=== PATIENT | female | born 1960 | race Caucasian/White ===

== ENCOUNTER 2019-05-22 20:45 | Emergency (ER) | payer MEDICAID, OTHER ==
[~2019-05-22] VITALS: Ht 152.4 cm; Wt 77.1 kg
[~2019-05-22 20:45] MED LIST: FLUC150T3 PO; KEN.1C TP
--- NOTE | 2019-05-22 20:52 | NUR ---
PT AMBULATED TO ER BED 8
[2019-05-22 20:58] VITALS: BP 117/96
--- NOTE | 2019-05-22 21:00 | NUR ---
PT PRESENTS WITH LLQ ABD AND FLANK PAIN 7/10 FOR ONE DAY. FEVER 102F, NAUSEA. DENIES VOMITING. PASSING GAS, STOOLS REGULAR DENIES DIARRHEA OR CONSTIPATION. DENIES COUGH. PULSE ELEVATED 155. PLACED ON MONITOR. COOLING MEASURES TAKEN. URINE OBTAINED AND SENT TO LAB. DIAPHORETIC. PMH: STROKE 2010 AND 2016, BREAST CANCER AND LEFT MASECTOMY 2004, HYPERTENSION
--- NOTE | 2019-05-22 21:07 | NUR ---
DR. BAIG BEDSIDE EVALUATING PT
[2019-05-22] MEDS ORDERED: NACL 0.9% 1,000 ML IV ONE ×2 (21:15→21:50)
[2019-05-22] MEDS ORDERED: ONDANSETRON 4 MG/2 ML VIAL IVP ONE (21:15)
[2019-05-22] MEDS ORDERED: MORPHINE SULFATE 4 MG/ML SYR IVP ONE (21:15)
[2019-05-22] MEDS ORDERED: ACETAMINOPHEN EXTRA STRENGTH 500 MG TAB PO ONE (21:25)
--- NOTE | 2019-05-22 21:25 | NUR ---
IV ESTABLISHED, LAB IN ROOM; BLOOD DRAWN; BLOOD CULTURES DRAWN; SENT TO LAB. URINE SENT TO LAB. GAVE IVP ZOFRAN AND MORPHINE, GAVE 1G PO TYLENOL, STARTED 1L NS IVF BOLUS. INFORMED PT OF NEED FOR CT. WILL CONTINUE TO MONITOR.
[2019-05-22 21:36] LABS: BASOPHILS # (AUTO) 0.1 K/uL (0.00-0.22); BASOPHILS % (AUTO) 0.8 % (0.0-2.0); EOSINOPHILS % (AUTO) 0.2 % (0.0-4.0); HEMATOCRIT 39.4 % (36-48); HEMOGLOBIN 13.2 g/dL (12.0-16.0); LYMPHOCYTES # (AUTO) 2.1 K/uL (2.5-16.5); LYMPHOCYTES % (AUTO) 19.3 % (20.5-51.1); MEAN CORPUSCULAR HEMOGLOBIN 29 pg (27-31); MEAN CORPUSCULAR HGB CONC 34 g/dL (33-37); MEAN CORPUSCULAR VOLUME 87.5 fL (80-94); MONOCYTES # (AUTO) 0.9 K/uL (0.8-1.0); MONOCYTES % (AUTO) 7.8 % (1.7-9.3); NEUTROPHILS % (AUTO) 71.9 % (42.2-75.2); PLATELET COUNT (AUTO) 260 K/uL (140-450); RED BLOOD CELL COUNT(AUTO) 4.51 MIL/uL (4.20-5.40); RED CELL DISTRIBUTION WIDTH 13.4 % (11.6-13.7); WHITE BLOOD COUNT (AUTO) 11.1 K/uL (4.8-10.8)
--- NOTE | 2019-05-22 21:42 | NUR ---
PT TAKEN TO CT VIA W/C
[2019-05-22 21:46] LABS: APPEARANCE,URINE CLEAR (CLEAR); BILIRUBIN,URINE NEGATIVE (NEGATIVE); BLOOD, URINE 2+ (NEGATIVE); COLOR,URINE YELLOW (YELLOW); LEUKOCYTE ESTERASE ,URINE 1+ (NEGATIVE); NITRITE, URINE POSITIVE (NEGATIVE); UGLUCOSE NEGATIVE (NEGATIVE)
[2019-05-22 21:50] LABS: RBC,URINE 11-20 (MOD) /HPF (0-5)
[2019-05-22] MEDS ORDERED: LEVOFLOXACIN 500 MG/D5W PREMIX 100 ML IV ONE (21:50)
[2019-05-22 21:51] LABS: ALBUMIN 3.4 g/dL (3.4-5.0); ANION GAP 12.1 (8-16); CARBON DIOXIDE 27.5 mmol/L (21-32); CREATININE 0.7 mg/dL (0.6-1.3); POTASSIUM 3.6 mmol/L (3.5-5.1); TOTAL BILIRUBIN 0.5 mg/dL (0.0-1.0)
--- NOTE | 2019-05-23 00:21 | NUR ---
IV removed, catheter intact and site benign. Applied folded 4x4 gauze and tape to stop bleeding.
[2019-05-23 00:22] VITALS: BP 120/67
--- NOTE | 2019-05-25 15:25 | NUR ---
RECEIVED FAX FROM LAB POSITIVE E COLI URINE ---PT SENT HOME ON CIPRO WHICH SHOWN TO BE RESISTANT--- NOTIFIED CHANGE TO BACTRIM DS 800MG BID X1 TAB X 7 DAYS PT CHOSE [facility] ; SPOKE WITH PHARMACIST
== END 2019-05-23 00:21 | disposition home or self-care (01) ==
LOC: MED 20:45
DX: N12 Tubulo-interstitial nephritis, not specified as acute or chronic (principal); I10 Essential (primary) hypertension; Z90.49 Acquired absence of other specified parts of digestive tract; Z98.890 Other specified postprocedural states; Z88.0 Allergy status to penicillin; Z79.899 Other long term (current) drug therapy; Z86.73 Personal history of transient ischemic attack (TIA), and cerebral infarction without residual deficits
CPT/HCPCS: 36415; 74176; 80053; 81001; 83605; 83690; 85025; 87040; 87086; 87186; 96365; 96375; 99284; J1956; J2270; J2405; J7030